=== PATIENT | female | born 1970 | race Two or more races ===

== ENCOUNTER 2019-05-27 15:06 | Emergency (ER) | payer OTHER ==
[~2019-05-27] VITALS: Ht 149.9 cm; Wt 67.1 kg
[2019-05-27 15:16] VITALS: BP 148/81
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
[2019-05-27] MEDS ORDERED: Methocarbamol 750mg tab ORAL ONE (15:45)
[2019-05-27] MEDS ORDERED: TYLENOL EXTRA500 MG ORAL (15:59)
[2019-05-27] MEDS ORDERED: ROBAXIN-750750 MG PO (15:59)
[2019-05-27 16:20] VITALS: BP 144/86
== END 2019-05-27 16:20 | disposition home or self-care (01) ==
LOC: EMR 15:50
DX: S16.1XXA Strain of muscle, fascia and tendon at neck level, initial encounter (principal); S33.5XXA Sprain of ligaments of lumbar spine, initial encounter; V43.52XA Car driver injured in collision with other type car in traffic accident, initial encounter; Y92.411 Interstate highway as the place of occurrence of the external cause
CPT/HCPCS: 99282